=== PATIENT | male | born 1945 | race Caucasian/White ===

== ENCOUNTER → 2023-10-16 15:31 | Outpatient (REF) | payer MEDICARE, SELFPAY | LOC: PAVMRI 15:31 | PROVIDERS: ATTENDING PHYSICIAN Psychiatry & Neurology Neurology; FAMILY PHYSICIAN Internal Medicine | DX: M47.812 Spondylosis without myelopathy or radiculopathy, cervical region (principal) | CPT/HCPCS: 72141 ==

== ENCOUNTER → 2024-01-05 15:25 | Outpatient (REF) | payer MEDICARE, SELFPAY | LOC: PAVMRI 15:25 | PROVIDERS: ATTENDING PHYSICIAN Physician Assistant Surgical; FAMILY PHYSICIAN Internal Medicine | DX: I72.9 Aneurysm of unspecified site (principal); I67.1 Cerebral aneurysm, nonruptured | CPT/HCPCS: 70547 ==

== ENCOUNTER → 2024-09-28 10:44 | Outpatient (REF) | payer MEDICARE, OTHER, SELFPAY | LOC: RAD 10:44 | PROVIDERS: ATTENDING PHYSICIAN Registered Nurse | DX: M54.50 Low back pain, unspecified (principal) | CPT/HCPCS: 72110 ==

== ENCOUNTER 2025-05-01 13:01 | Inpatient (IN) | payer MEDICARE, OTHER, SELFPAY ==
[2025-05-01] VITALS (11 sets, daily range): BP systolic 102–140; BP diastolic 60–78; BMI 23.6
--- NOTE | 2025-05-01 10:08 | ED.GENMED ---
History of Present Illness
General
Chief Complaint: Numbness
Time Seen by Provider: 05/01/25 10:08
History of Present Illness
History of Present Illness:
FOCUSED PAST MEDICAL HISTORY
- GERD
REVIEW OF OLD RECORDS
- I reviewed records, the patient is getting physical therapy related to pain in the left knee
Note:
CHIEF COMPLAINT(S)
Left leg weakness beginning last night.
HISTORY OF PRESENT ILLNESS
The patient is a 79-year-old male who experienced sudden onset of weakness in the left leg around 11:00 PM the previous night. He noted the weakness when he attempted to stand after falling asleep in a recliner and fell immediately. He reports that
the weakness has persisted since its onset. There have been no issues with speech, confusion, or weakness in any other extremities such as arms. The patient denies any pain in the back or leg but mentions that the leg feels as if it is in a brace
and does not move properly. He describes an inability to keep the leg elevated and weak extension when attempting to lift the leg.
For the past few months, the patient notes experiencing occasional cramping, described as a 'Kris horse,' specifically on the left side, which improves with walking. However, these are not currently problematic. Sensation in the leg remains
intact as he felt a pinching sensation during examination.
The patients foot and ankle strength were noted to be good by the examining physician, raising concerns about why the weakness is isolated to the leg. There is no report of numbness or tingling nor does he experience pain radiating down the leg upon
physical maneuvers.
PAST MEDICAL AND SURGICAL HISTORY
The patient has had two hip replacements, three knee surgeries, and two shoulder operations.
PHYSICAL EXAM
General: Alert, no acute distress.
Skin: Warm, dry.
Head: Normocephalic, atraumatic.
Neck: Supple, trachea midline.
Eye Ears, nose, mouth and throat: Oral mucosa moist.
Cardiovascular: Normal peripheral perfusion, no edema.
Respiratory: Respirations are non-labored.
Gastrointestinal: Abdomen nondistended.
Back: Normal range of motion, normal alignment.
Musculoskeletal: Weakness noted in left leg extension, otherwise normal range of motion and strength for other tested areas.
Neurological: Alert and oriented to person, place, time, and situation, sensation intact. No focal neurological deficit in upper extremities. 3 out of 5 strength in the left lower extremity.
Psychiatric: Cooperative, appropriate mood & affect.
PLAN
The patient will undergo a computed tomography (CT) scan to further investigate the cause of the left leg weakness. A neurologist will be consulted regarding the isolated leg weakness, as it is not typical of a stroke presentation due to the absence
of arm involvement and preserved strength in the ankle and foot.
DIFFERENTIAL DIAGNOSIS
The differential diagnosis includes, in no particular order and is not limited to:
1. Stroke
2. Peripheral neuropathy
3. Spinal stenosis
4. Muscle strain or injury
5. Deep vein thrombosis
6. Sciatica
7. Multiple sclerosis
8. Infection such as cellulitis
9. Hip pathology
10. Vascular occlusion
RADIOLOGY
- CT head shows no acute abnormality, CTA head and neck and CTP unremarkable
EKG
- Sinus 76, normal axis, no acute ST abnormality, first-degree AV block, rate is increased compared to 07/31/2021 when it was 50
LABS
- Hemoglobin 12.7, otherwise labs unremarkable
UPDATE
-SUMMARY OF ENCOUNTER
The patient is a 79-year-old male who presented to the emergency department with sudden onset left leg weakness beginning the previous night. His presentation initiated a stroke alert. An urgent non-contrast CT scan of the brain was conducted, which
showed no intracranial hemorrhage or large vessel occlusion. As the CT perfusion was unremarkable, further imaging was conducted to rule out any significant vascular occlusions.
DISPOSITION
The patient will be admitted to the hospital for further management and observation given the acute presentation of left leg weakness and the need for further neurological evaluations.
MANAGEMENT OF THE PATIENTS CARE WAS DISCUSSED WITH
A neurologist was consulted regarding the isolated left leg weakness to further investigate possible stroke or other neurological conditions.
PLAN
The patient will undergo further neurological evaluation and continuous monitoring to observe any progression or improvement of the symptoms. Continued supportive care and additional imaging if needed while inpatient.
INDEPENDENT REVIEW OF LABS AND INTERPRETATION OF TESTS
My independent interpretation of the CT scan of the brain indicates no intracranial hemorrhage and no signs of large vessel occlusion. The CT perfusion is unremarkable.
MEDICAL DECISION MAKING
1. Number and Complexity of Problems Addressed:
Chronic conditions affecting care include previous hip and knee surgeries that could impact current musculoskeletal evaluations. Differential diagnosis includes stroke, peripheral neuropathy, spinal stenosis, muscle strain or injury, deep vein
thrombosis, sciatica, multiple sclerosis, cellulitis, hip pathology, and vascular occlusion.
2. Data:
Category 1
Independent review and interpretation of CT brain imaging were performed to confirm the absence of intracranial hemorrhage and occlusion.
Category 3
Discussion of management and test interpretation with a neurologist regarding differential diagnosis and appropriate management given the isolated weakness.
3. Risk:
Consideration of Admission/Observation: Escalation of care including admission/observation was considered given the complexity and risk of the patients presenting complaint, exam findings, and underlying comorbidities. Hospital admission was decided
to ensure comprehensive management and observation within an inpatient setting.
DIAGNOSIS
1. Left Leg Weakness, Suspected Acute Stroke - ICD-10-CM R29.89
Past History
Past History
ED Past Medical History: Hypercholesterolemia
ED Past Surgical History: Orthopedic
Social History
Tobacco: Non-smoker
Alcohol: None
Drug: None
Phy Exam
Physical Exam
Physical Exam:
See HPI
Course
Orders/Labs/Results
Orders:
Orders
05/01/25 10:21
CT BRAIN PERF STROKE ALERT Urgent
Comment:
Reason For Exam: acute LLE weak
CT HEAD STROKE ALERT W/o Cont Urgent
Comment:
Reason For Exam: acute LLE weak
CT HEAD/NECK ANG STROKE ALERT Urgent
Comment:
Reason For Exam: acute LLE weak
05/01/25 10:24
Electrocardiogram (*1) Urgent
Reason for Study: TIA/Stroke
05/01/25 10:25
EKG- Treatment ONCE
Complete Blood Count/With Diff Urgent
Comprehensive Metabolic Panel Urgent
Abnormal Lab Results
05/01/25
10:25
RBC 4.55 L 10^6/uL
(4.70-6.10)
Hgb 12.7 L g/dL
(13.0-18.0)
MCHC 32.1 L g/dL
(33.0-37.0)
MPV 10.5 H fL
(7.4-10.4)
Absolute Lymphs (auto) 0.8 L 10^3/uL
(1.2-3.4)
Absolute Monos (auto) 0.8 H 10^3/uL
(0.1-0.6)
Lymphocytes % 13.5 L %
(20.5-51.1)
Monocytes % 12.2 H %
(1.7-9.3)
05/01/25 10:25
05/01/25 10:25
Vital Signs
Initial and Last Documented VS:
Initial Vital Signs
Temp Pulse Resp BP Pulse Ox
36.9 C 82 16 119/60 96
05/01/25 10:02 05/01/25 10:02 05/01/25 10:02 05/01/25 10:02 05/01/25 10:02
Last Documented Vital Signs
Temp Pulse Resp BP Pulse Ox
36.9 C 74 10 121/63 96
05/01/25 10:02 05/01/25 10:17 05/01/25 10:17 05/01/25 10:17 05/01/25 10:09
*Pulse Oximetry
SaO2: 96
Oxygen Mode of Delivery: Room air
Patient hypoxic: no
*Critical Care Note
Total Time (30-74mins, 75-104mins- exclusive of procedures): Not Applicable
ED Attending Note
-
Portions of this chart may have been created with voice recognition software.� Occasional wrong word or��sound alike� substitutions may have occurred due to the inherent limitations of voice recognition software.
Discharge Plan
Departure
Patient Disposition: Admit
Date of Disposition: 05/01/25
Time of Disposition: 11:24
Presentation/result/management discussed w/ accepting MD/DO: Hospitalist
Discharge Problem:
Left leg weakness
Prescriptions:
No Action
atorvastatin 20 MG tablet
20 mg PO MOWEFR
Referrals:
Isis Rock [facility]CKL[facility] [Family Provider, Internal Medicine]
Interventions
Interventions:
*Risk Screen - Suicide Last Done: 05/01/25 10:02
*General Assessment Last Done: 05/01/25 10:53
*Neglect/Abuse Screening Last Done: 05/01/25 10:02
*ED- Fall Risk Assessment Last Done: 05/01/25 10:22
*ED COVID-19 Vaccine History Last Done: 05/01/25 10:22
*ED Influenza Vaccine History Last Done: 05/01/25 10:22
ED- Neurological Assessment Last Done: 05/01/25 10:23
Discharge Date and Time
Print Language: LUXEMBOURGISH
[2025-05-01 10:45] LABS: Hematocrit 39.6 % (39.0-52.0); Hemoglobin 12.7 g/dL (13.0-18.0); Mean Corp Hgb Conc. 32.1 g/dL (33.0-37.0); Mean Corpuscular Volume 87.0 fL (80.0-94.0); Nucleated Red Blood Cells % 0 % (-); Platelet Count 207 10^3/uL (130-400); Red Cell Dist. Width 13.6 % (11.5-14.5)
--- NOTE | 2025-05-01 10:50 | EDRN ---
Pt has good strength of foot/ ankle. Can flex knee Pt can flex hip . Pt has weakness trying to hold leg up off of bed... He can lift it of the stretcher but it drifts back down. He has good color and temp to both feet with strong pulses. Pt reports
that over the last few nights has noted ' charley horse' discomfort affecting lt posterior thigh,. He says it feels like he has a brace on his thigh.
[2025-05-01 10:59] LABS: ALT (SGPT) 21 U/L (0-50); AST (SGOT) 26 U/L (17-59); Albumin 4.1 g/dl (3.5-5.0); Alkaline Phosphatase 76 U/L (38-126); Blood Urea Nitrogen 14 mg/dl (9-20); Calcium 9.0 mg/dl (8.4-10.2); Carbon Dioxide 27 mmol/L (22-30); Chloride 104 mmol/L (98-107); Glucose 94 mg/dl (70-99); Potassium 4.1 mmol/L (3.5-5.1); Sodium 138 mmol/L (135-145); Total Protein 6.9 g/dl (6.3-8.2); eGFR > 60.00
--- NOTE | 2025-05-01 11:49 | HPS.HSE ---
Family Physician
-
Family Physician: Is[facility] Rock
Chief Complaint
-
Acute onset left leg weakness
History of Present Illness
79-year-old [id number] male with past medical history of hyperlipidemia presenting to the ER reporting acute onset left lower extremity weakness, numbness, decreased sensation. Patient was sleeping in a recliner yesterday night after
dinner for around 2 hours, he tried to get up from his recliner and fell onto his left side, stating that his left leg gave away. Denies any head strike. Reports that his left leg felt heavy and since then he was not able to walk properly.
Patient denies speech defect, confusion, blurry vision, bladder/bowel incontinence, fever/chills, recent trauma. No other neurological deficits mentioned except as above. Patient does not have history of migraines/seizures.
ED course�stroke alert was called at presentation, CT head, CT perfusion, CTA head/neck was negative. He was evaluated by neurology. Vital stable, labs unremarkable except for hemoglobin�12.7.
Medical History
Past Medical History
Past Medical History: Reports Hypercholesterolemia
Past Surgical History: Reports Other (Bilateral hip replacements, 2 shoulder surgeries, 3 knee surgeries.)
Social History
Tobacco: Former Smoker
Alcohol: Occasional
Drug: None
Personal:
Living: With Family
Employment: Retired
Family History
Family History: Not pertinent
Allergies / Home Medications
Allergies reflects when Allergies were last updated in [employer].
Home Medications with original date entered in [employer]
Allergy/Medication List:
Allergies
Allergy/AdvReac Type Severity Reaction Status Date / Time
No Known Allergies Allergy Verified 05/01/25 10:48
Home Medications
atorvastatin 20 mg tablet 20 mg PO MOWEFR 08/10/21
Review of Systems
-
A 12 point ROS was completed and negative except as noted: Yes
Physical Exam
Vital Signs
Vital Signs
Temp Pulse Resp BP Pulse Ox
98.4 F 74 10 121/63 96
05/01/25 10:02 05/01/25 10:17 05/01/25 10:17 05/01/25 10:17 05/01/25 10:09
Physical Exam
General: Well Developed, Well Nourished and No Apparent Distress
HEENT: NormoCephalic, Atraumatic and PERRLA
Respiratory: Clear
Cardiac: S1/S2 and Regular Rhythm
GI: Soft, Non Tender, Non Distended and Normal Bowel Sounds
Skin: Warm and Dry
Neuro: Awake, Alert, Oriented, AO x 3, Cranial Nerves Intact and Other (No pronator drift, right lower extremity sensations, strength, DTRs intact. Left lower extremity-strength 3/5, decreased sensation, DTRs intact.); No Slurred Speech or Facial
Droop
Psych: Calm
Laboratory Results
-
05/01/25 10:25
05/01/25 10:25
Laboratory Results
Total Bilirubin 0.8 mg/dl (0.2-1.3) 05/01/25 10:25
AST 26 U/L (17-59) 05/01/25 10:25
ALT 21 U/L (0-50) 05/01/25 10:25
Alkaline Phosphatase 76 U/L (38-126) 05/01/25 10:25
Impression/Plan
-
IMPRESSION:
79-year-old male with hyperlipidemia presenting to the ER with acute onset left lower extremity weakness. Stroke alert was called, neurology evaluated, CT head, CTP, CTA head/neck negative for acute abnormalities, no vascular stenosis.
PLAN:
#Acute onset left lower extremity weakness
Etiology likely due to lumbar spine pathology (lumbar spine stenosis versus degenerative disc disease), less likely stroke.
No aphasia, facial droop, pronator drift noticed/reported.
EKG with NSR, first-degree AV block (not new)
CT head imaging, CTA negative for stroke
Will order MRI brain
Will order MRI lumbar spine
EMG/NCS for further evaluation if needed, pending MRI lumbar spine.
Neurology on board, appreciate recommendations
Check CPK
PT/OT consult
Monitor clinically for any worsening
#Hyperlipidemia
Continue statins
Check CPK
DVT prophylaxis�Lovenox
Diet�low-cholesterol
Full code
--- NOTE | 2025-05-01 13:07 | W.PN.UPDATE ---
Update Note
Progress Note Update
I saw and evaluated the patient with the resident.
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 Denies to back pain, or sensory loss.
Denies to other neurologic deficit. Stroke alert was called on admission.
A/P:
# Acute onset left lower extremity weakness, unclear etiology currently
Admission CT head and CT Angio unrevealing
Check MRI brain
Check MRI Lumbar spine
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
Neurology CS
PT/OT consult
# Hyperlipidemia
Continue statin for now
can check lipid
DVT prophylaxis�Lovenox
Full code
[2025-05-01] MEDS: NSS 250 IV (14:16)
--- NOTE | 2025-05-01 16:43 | EDCM ---
CM reviewed chart and met with pt and bedside in ED. Pt lives with in 2 story home, no DIANA. Has first floor half bath, full flight to second floor bedroom and full bath.
Independent in ADLs, personal care and ambulation at baseline. Does not use assistive devices but has cane, crutches, wheelchair and commode in home from other family members.
Confirms prescription coverage, states they also use [facility]
Hx VN unsure of agency, no hx SNF
PCP: Is[facility] Rock
Pharmacy: [facility] [address]
CM will continue to follow for all discharge planning needs.
--- NOTE | 2025-05-01 17:30 | CON.NEURO4 ---
Consultation - Neurology 4
-
CONSULTING PHYSICIAN: Dr. Erik Chacko
REFERRING PHYSICIAN: Dr. Dale Manzo
DICTATED BY: Dr. Erik Chacko
DATE/TIME OF REQUEST: 05/01/2025
DATE/TIME OF CONSULTATION: 05/01/2025
Reason for Consultation: Left leg weakness
ASSESSMENT AND PLAN:
The patient is a 79 years old male who experienced sudden onset of weakness of left leg at around 11 PM last night. The patient noted the weakness when he attempted to stand up after falling asleep in a recliner, and he fell immediately after
attempting to stand up. The patient's weakness has persisted since his onset. The last known normal is at 11 PM last night. He denies any difficulty with speech or weakness in any other extremity and he also denies any facial droop. The patient
denies any numbness of the left leg. The patient says that he has a chronic back problem for which he visits chiropractor regularly and the last time he visited the chiropractor was 2 days ago.
It appears unlikely that the patient had an acute acute stroke and the etiology appears to be secondary to lumbar spine pathology. CT of the head does not show an acute intracranial abnormality. CTA of the head and neck did not show a large vessel
occlusion. The plan is to get MRI of the lumbar spine. The patient says that he has a chronic back problem for which he visits chiropractor regularly and the last time he visited the chiropractor was 2 days ago. The neurologic examination is
normal except of mild weakness in the left lower extremity.
History of Present Illness:
The patient is a 79 years old male who experienced sudden onset of weakness of left leg at around 11 PM last night. The patient noted the weakness when he attempted to stand up after falling asleep in a recliner, and he fell immediately after
attempting to stand up. The patient's weakness has persisted since his onset. The last known normal is at 11 PM last night. He denies any difficulty with speech or weakness in any other extremity and he also denies any facial droop. The patient
denies any numbness of the left leg. The patient says that he has a chronic problem for which he visits chiropractor regularly and the last time he visited the chiropractor was 2 days ago.
Past Medical History:
The patient has had two hip replacements, three knee surgeries, and two shoulder operations.
Review of Systems:
The patient denies history of headache, dizziness, chest pain, shortness of breath, fever, chills, nausea and vomiting.
Neurologic Examination:
The patient is alert and oriented x 3,
Speech is clear,
The cranial nerves II to XII are grossly intact,
The motor strength is grossly 5/5 bilaterally in the upper extremities and in the right lower extremity however the strength in the left lower extremity is about 4/5,
The sensations are grossly intact,
The cerebellar examination does not show limb ataxia.
Vital Signs and Labs
-
Vital Signs and Labs:
Vital Signs
Temp Pulse Resp BP Pulse Ox
36.9 C 69 12 135/68 96
05/01/25 10:02 05/01/25 16:45 05/01/25 16:45 05/01/25 16:00 05/01/25 10:09
Lab Results
05/01/25 10:25
05/01/25 10:25
Sodium 138 mmol/L (135-145) 05/01/25 10:25
Potassium 4.1 mmol/L (3.5-5.1) 05/01/25 10:25
BUN 14 mg/dl (9-20) 05/01/25 10:25
Glucose 94 mg/dl (70-99) 05/01/25 10:25
Calcium 9.0 mg/dl (8.4-10.2) 05/01/25 10:25
Medications
-
Home Medications
�Medication �Instructions �Recorded
atorvastatin 20 mg tablet 20 mg PO MOWEFR 08/10/21
[2025-05-01] MEDS: LOVENOX 40 MG SC (20:20)
--- NOTE | 2025-05-01 22:22 | PTCARENOTE ---
Patient developed a fever of 100.5. Patient received Tylenol for fever. Septic workup was completed. Patient came back positive for COVID.
--- NOTE | 2025-05-01 22:22 | W.PN.UPDATE ---
Update Note
Progress Note Update
-New onset of fever with temp 100.5.
chest x-ray, cbc, bmp, lactic, flu, covid, blood cultures, urinalysis.
-Positive covid test. Patient denies cough or SOB. Currently on RA.
-Vitamin C, D, zinc, and mag added
-Tylenol PRN for fever.
-Neg flu. Normal lactic acid level and white blood cells and urinalysis unremarkable.
-Chest x-ray with no evidence for PNA or other acute cardiopulmonary disease.
-Blood cultures still pending.
[2025-05-01] MEDS: TYLENOL 650 MG PO (22:49)
[2025-05-01 22:52] LABS: Hematocrit 41.5 % (39.0-52.0); Hemoglobin 13.1 g/dL (13.0-18.0); Mean Corp Hgb Conc. 31.6 g/dL (33.0-37.0); Mean Corpuscular Volume 89.8 fL (80.0-94.0); Platelet Count 186 10^3/uL (130-400); Red Cell Dist. Width 13.8 % (11.5-14.5)
[2025-05-01 23:10] LABS: COVID-19 Antigen Positive (Negative)
[2025-05-01 23:14] LABS: Blood Urea Nitrogen 12 mg/dl (9-20); Calcium 8.8 mg/dl (8.4-10.2); Carbon Dioxide 27 mmol/L (22-30); Chloride 103 mmol/L (98-107); Estimated Creatinine Clearance 69 ml/min; Glucose 88 mg/dl (70-99); Potassium 3.9 mmol/L (3.5-5.1); Sodium 138 mmol/L (135-145); eGFR > 60.00
[2025-05-01 23:15] LABS: Urine Character Clear (Clear)
[2025-05-01 23:22] LABS: Urine Red Blood Cell 0-2 /HPF (0-2); Urine White Cell 0-2 /HPF (0-5)
[2025-05-02] MEDS: VITAMIN C 1000 MG PO ×3 (00:05→20:35)
[2025-05-02 07:09] LABS: Hematocrit 43.4 % (39.0-52.0); Hemoglobin 13.6 g/dL (13.0-18.0); Mean Corp Hgb Conc. 31.3 g/dL (33.0-37.0); Mean Corpuscular Volume 88.2 fL (80.0-94.0); Nucleated Red Blood Cells % 0 % (-); Platelet Count 188 10^3/uL (130-400); Red Cell Dist. Width 13.8 % (11.5-14.5)
[2025-05-02 07:30] VITALS: BP 134/74
[2025-05-02 07:38] LABS: ALT (SGPT) 22 U/L (0-50); AST (SGOT) 29 U/L (17-59); Albumin 4.1 g/dl (3.5-5.0); Alkaline Phosphatase 75 U/L (38-126); Blood Urea Nitrogen 11 mg/dl (9-20); Calcium 8.9 mg/dl (8.4-10.2); Carbon Dioxide 29 mmol/L (22-30); Chloride 103 mmol/L (98-107); Estimated Creatinine Clearance 69 ml/min; Glucose 88 mg/dl (70-99); HDL Cholesterol 49 mg/dl; LDL Cholesterol, Calculated 88 mg/dl; Sodium 139 mmol/L (135-145); Total Protein 6.9 g/dl (6.3-8.2); Very Low Density Lipoprotein 19 mg/dl (0-30); eGFR > 60.00
[2025-05-02 07:44] LABS: Potassium 4.1 mmol/L (3.5-5.1)
[2025-05-02] MEDS: MAGNESIUM OXIDE 400 MG PO (08:30)
[2025-05-02] MEDS: ZINC 50 MG PO (08:31)
[2025-05-02] MEDS: VITAMIN D3 (cholecalciferol) 50 MCG PO (08:31)
[2025-05-02] MEDS: LIPITOR 20 MG PO (11:25)
[2025-05-02 11:56] VITALS: BP 131/83; PULSE 78; O2SAT 97
[2025-05-02 12:39] VITALS: BP 138/63; O2SAT 96
--- NOTE | 2025-05-02 14:46 | W.PN.NEURO.1 ---
Today's Communication / Plan
-
Will provide prednisone 60 mg with rapid taper although the patient has been recently diagnosed with COVID in hopes of improving leg function
Consideration for EMG as outpatient may be of benefit, there is no clear evidence at this time of a rapidly progressive process
Neuro Assessment/Plan
Assessment
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 Differential diagnosis includes subacute worsening of his underlying peripheral neuropathy
especially in light of MRI of his lumbar spine not demonstrating a significant critical stenosis of lumbar roots. MRI of brain was also unremarkable for an acute change producing symptoms.
Plan
Continue rehabilitation
Will provide prednisone 60 mg with rapid taper although the patient has been recently diagnosed with COVID in hopes of improving leg function
Consideration for EMG as outpatient may be of benefit, there is no clear evidence at this time of a rapidly progressive process
Will follow as outpatient, or patient may follow with his usual outpatient neurologist
Subjective/Objective
Subjective Data
Date of Service: May 02, 2025
Patient reports mild improvement of the left leg function. No known modifying factors
Objective Data
Vital Signs
Temp Pulse Resp BP Pulse Ox
36.3 C 80 22 134/74 97
05/02/25 07:30 05/02/25 07:30 05/02/25 07:30 05/02/25 07:30 05/02/25 08:35
Lab Results
05/02/25 06:48
05/02/25 06:48
Sodium 139 mmol/L (135-145) 05/02/25 06:48
Potassium 4.1 mmol/L (3.5-5.1) 05/02/25 06:48
BUN 11 mg/dl (9-20) 05/02/25 06:48
Glucose 88 mg/dl (70-99) 05/02/25 06:48
Calcium 8.9 mg/dl (8.4-10.2) 05/02/25 06:48
LDL Cholesterol, Calc 88 mg/dl 05/02/25 06:48
Patient Allergies
No Known Allergies Allergy (Verified 05/01/25 10:48)
Review of Systems
-
History Source: Patient
All other systems: Reviewed and negative
Respiratory: Negative Trouble Breathing
Cardiac: Negative Chest Pain
Abdomen/GI: Negative Incontinence of Stool
Genitourinary: Negative Incontinence
Physical Exam
-
General: No Apparent Distress and Appears Stated Age
Eyes: Round OU, [place] Conjunctivae and No Ptosis
HEENT: Anicteric and Moist Mucous Membranes
Neck: Full Range of Motion
Respiratory: No Dyspnea
Cardiac: No JVD
GI: Non-distended
Skin: Unremarkable
Extremities: No Clubbing, No Cyanosis and No Edema
Psych: Intact Judgement/Insight
Extended Neurological Exam
Mood & Affect: Mood Unremarkable and Affect Unremarkable
Attention Span & Concentration: Awake, Alert, Interactive and No Difficulty with 2 Step Request
Memory: Unremarkable
Tremor: Hand Tremor Absent and Head Tremor Absent
Speech: Quality Unremarkable and Quantity Unremarkable
Cranial Nerve II: Left Eye: Pupillary Size Unremarkable and Visual Le Grossly Intact
Cranial Nerve II: Right Eye: Pupillary Size Unremarkable and Visual Le Grossly Intact
Cranial Nerves III, IV, : Extraocular Movement: Grossly Intact
Cranial Nerve VII: Facial Symmetry: Normal Facial Symmetry
Cranial Nerve VIII: Hearing: Unremarkable Hearing to Normal Conversational Volume
Cranial Nerve XI: Shoulder Shrug: Unremarkable
Muscle Strength, Overall: Reduced (3-5 left foot dorsiflexion as well as proximal strength reduction to 4 out of 5 in left lower extremity; otherwise intact) and Full in Upper Extremities
Muscle Bulk & Tone: Bulk Unremarkable and Tone Unremarkable
Pronator Drift: No Drift in Upper Extremities and Drift in Left Lower Extremity; Negative Drift in Right Lower Extremity
Deep Tendon Reflexes: Trace Throughout
Touch Sensation: Pin Prick Reduced (Distally in bilateral lower extremities)
Coordination: [id number] Testing Unremarkable
Data Reviewed
-
MRI Head: Report Reviewed
MRI Lumbar Spine: Report Reviewed
Labs: Report Reviewed
Reviewed with: Physician, Nurse Practioner and Patient
Old Records: Summarized
Past History
Past History
ED Past Medical History: Hypercholesterolemia, Hypothyroidism and Other (cervical dystonia, BPH)
ED Past Surgical History: Orthopedic
Social History
Tobacco: Non-smoker
Alcohol: None
Drug: None
Medications
-
Medications:
Generic Name Dose Route Start Last Admin
Trade Name Freq PRN Reason Stop Dose Admin
Acetaminophen 650 mg 05/01/25 22:22 05/01/25 22:49
Acetaminophen 325 Mg Tablet PO 05/29/25 22:21 650 mg
Q6HPRN PRN Administration
mild pain/ fever>100.5F
Ascorbic Acid 1,000 mg 05/01/25 23:45 05/02/25 08:30
Ascorbic Acid 500 Mg Tablet PO 05/29/25 23:44 1,000 mg
BID PEYMAN Administration
Atorvastatin Calcium 20 mg 05/02/25 12:24 05/02/25 11:25
Atorvastatin (Lipitor) 20 Mg Tablet PO 05/30/25 12:23 20 mg
MOWEFR PEYMAN Administration
Cholecalciferol 50 mcg 05/02/25 08:00 05/02/25 08:31
Cholecalciferol (Vitamin D3) 50 Mcg Tablet (2,000 Units) PO 05/30/25 07:59 50 mcg
DAILY PEYMAN Administration
Enoxaparin Sodium 40 mg 05/01/25 18:00 05/01/25 20:20
Enoxaparin Sodium 40 Mg/0.4 Ml Syringe SC 05/29/25 17:59 40 mg
QPM PEYMAN Administration
Magnesium Oxide 400 mg 05/02/25 08:00 05/02/25 08:30
Magnesium Oxide 400 Mg Tablet PO 05/30/25 07:59 400 mg
DAILY PEYMAN Administration
Zinc 50 mg 05/02/25 08:00 05/02/25 08:31
Zinc 50 Mg (Zinc Sulfate 220 Mg) Capsule PO 05/30/25 07:59 50 mg
DAILY PEYMAN Administration
[2025-05-02 15:30] VITALS: BP 118/75
--- NOTE | 2025-05-02 16:08 | W.PN.HOSP.TC ---
Today's Communication/Plan
-
MRI brain, lumbar spine. Supportive care for COVID.
Assessment / Plan
Assessment / Plan
79M with HLD P/W acute onset left lower extremity weakness.
LLE weakness
CTH unremarkable
MRI brain does not reveal any stroke
MRI lumbar spine shows degenerative changes
CK 118
Neurology consulted, foot drop and peripheral neuropathy are likely contributors
PT/OT
COVID infection
Fever overnight 05/01, poor appetite and cold symptoms since 1 week
No pneumonia on CXR. 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
Treat conservatively
HLD
Statin
DVT PPx
Lovenox
Full code
Anticipated Discharge: Within 24 hours
Subjective/Interval History
-
Date of Service: May 02, 2025
Patient feeling okay, no change in his weakness. Notes fever overnight, has been feeling poorly for about a week, including loss of appetite, cold symptoms.
Objective Data
-
Labs:
Laboratory Results
05/02/25
06:48
WBC 4.7 L
Hgb 13.6
Hct 43.4
Plt Count 188
Sodium 139
Potassium 4.1
Chloride 103
Carbon Dioxide 29
BUN 11
Creatinine 0.9
Glucose 88
Calcium 8.9
Total Bilirubin 0.7
AST 29
ALT 22
Alkaline Phosphatase 75
Vital Signs:
Vital Signs
Temp Pulse Resp BP Pulse Ox
97.4 F 80 22 134/74 97
05/02/25 07:30 05/02/25 07:30 05/02/25 07:30 05/02/25 07:30 05/02/25 08:35
Review of Systems
-
All other systems: Reviewed and negative
Physical Exam
-
General: No Apparent Distress
HEENT: Moist Mucous Membranes, Anicteric and PERRLA
Respiratory: Clear to Auscultation; Negative Wheezes, Rales or Rhonchi
Cardiac: Regular Rhythm and S1/S2; Negative Murmur, Rub or Gallop
GI: Soft, Nontender, Nondistended and Normal Bowel Sounds
Musculoskeletal: No Edema
Skin: Warm and Dry; Negative Rash, Ulcers or Lesions
Neuro: Awake, AO x 3, Central Nerve's Intact and Other (RUE, LUE, RLE, 5 out of 5 strength, LLE 3-4 out of 5 strength.)
Hematologic / Lymphatic: No Lymphadenopathy
Psych: Calm
Data Reviewed
-
MRI: Report Reviewed by me, Discussed with Physician and Discussed with Patient
Labs: Labs Reviewed by me and Discussed with Patient
[2025-05-02] MEDS: LOVENOX 40 MG SC (17:13)
[2025-05-02] MEDS: DELTASONE 60 MG PO (17:22)
--- NOTE | 2025-05-02 20:44 | PTCARENOTE ---
Pt transferred to 426 via W/C by this nurse. Belongings with pt. Pt AAOx3 Ataxia on L leg. No c/o pain. Pt oriented to room. Safety measures in place, call pimentel within reach.
[2025-05-02 23:37] VITALS: BP 122/74
[2025-05-03 07:00] VITALS: BP 138/78
[2025-05-03] MEDS: DELTASONE 50 MG PO (08:54)
[2025-05-03] MEDS: ZINC 50 MG PO (08:55)
[2025-05-03] MEDS: VITAMIN C 1000 MG PO ×2 (08:55→19:25)
[2025-05-03] MEDS: MAGNESIUM OXIDE 400 MG PO (08:56)
[2025-05-03] MEDS: VITAMIN D3 (cholecalciferol) 50 MCG PO (08:56)
--- NOTE | 2025-05-03 10:42 | CM ---
Chart reviewed. Covid (+)
Therapy has possible rehab determination. Discussed w/ patient who reports that he feels fine but is still having weakness. Patient stated he drives and his does not due to her neuropathy. Patient stated he needs to be able to get in and out of
the car. CM discussed SNF w/ patient, patient prefers to go home w/ PT even if he still has weakness at discharge.
Plan: Home w/ home PT
--- NOTE | 2025-05-03 13:45 | W.PN.HOSP.TC ---
Today's Communication/Plan
-
Awaiting final PT/OT recs. Possible discharge tomorrow. Outpatient EMG
Assessment / Plan
Assessment / Plan
79M with HLD P/W acute onset left lower extremity weakness.
LLE weakness
CTH unremarkable
MRI brain does not reveal any stroke
MRI lumbar spine shows known degenerative changes
CK 118
Neurology consulted, foot drop and peripheral neuropathy are likely contributors
Neurology recommends outpatient EMG
PT/OT final recs are pending
COVID infection
Fever overnight 05/01, poor appetite and cold symptoms since 1 week
No pneumonia on CXR. 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
Treat conservatively. No further symptoms
HLD
Statin
DVT PPx
Lovenox
Full code
Anticipated Discharge: Within 24 hours
Subjective/Interval History
-
Date of Service: May 03, 2025
Patient notes improvement in his left leg strength from yesterday to today. He has no further COVID symptoms.
Objective Data
-
Labs:
Laboratory Results
05/02/25
06:48
WBC 4.7 L
Hgb 13.6
Hct 43.4
Plt Count 188
Sodium 139
Potassium 4.1
Chloride 103
Carbon Dioxide 29
BUN 11
Creatinine 0.9
Glucose 88
Calcium 8.9
Total Bilirubin 0.7
AST 29
ALT 22
Alkaline Phosphatase 75
Vital Signs:
Vital Signs
Temp Pulse Resp BP Pulse Ox
98.2 F 66 18 138/78 98
05/03/25 07:00 05/03/25 07:00 05/03/25 07:00 05/03/25 07:00 05/03/25 07:00
I&O
05/02/25 05/03/25 05/04/25
06:59 06:59 06:59
Intake Total 1200 / 1200
Output Total 900 / 900
Balance 300 / 300
Review of Systems
-
All other systems: Reviewed and negative
Physical Exam
-
General: No Apparent Distress
HEENT: Moist Mucous Membranes, Anicteric and PERRLA
Respiratory: Clear to Auscultation; Negative Wheezes, Rales or Rhonchi
Cardiac: Regular Rhythm and S1/S2; Negative Murmur, Rub or Gallop
GI: Soft, Nontender, Nondistended and Normal Bowel Sounds
Musculoskeletal: No Edema
Skin: Warm and Dry; Negative Rash, Ulcers or Lesions
Neuro: Awake, AO x 3, Central Nerve's Intact and Other (RUE, LUE, RLE, 5 out of 5 strength, LLE 4-5 out of 5 strength.)
Hematologic / Lymphatic: No Lymphadenopathy
Psych: Calm
Data Reviewed
-
MRI: Report Reviewed by me, Discussed with Physician and Discussed with Patient
Labs: Labs Reviewed by me and Discussed with Patient
[2025-05-03 15:02] VITALS: BP 119/71
[2025-05-03] MEDS: LOVENOX 40 MG SC (16:12)
[2025-05-03 23:00] VITALS: BP 107/70
[2025-05-04 08:00] VITALS: BP 128/68
[2025-05-04] MEDS: DELTASONE 40 MG PO (08:37)
[2025-05-04] MEDS: ZINC 50 MG PO (08:40)
[2025-05-04] MEDS: LIPITOR 20 MG PO (08:40)
[2025-05-04] MEDS: VITAMIN D3 (cholecalciferol) 50 MCG PO (08:40)
[2025-05-04] MEDS: VITAMIN C 1000 MG PO (08:41)
[2025-05-04] MEDS: MAGNESIUM OXIDE 400 MG PO (08:41)
[2025-05-04 09:27] VITALS: BP 128/68
--- NOTE | 2025-05-04 11:14 | W.DCSUMMARY ---
Discharge Summary
Discharge Data
Date of Admission: 05/01/25
Date of Discharge: 05/04/25
Total time spent discharging patient (in min): 40
-
Pending Results: No
Hospital Course
Attending physician on day of discharge:
Gisell Trejo MD
Admission/discharge diagnosis:
LLE weakness
Secondary diagnoses:
DDD
COVID
HLD
Consultations:
Neurology Dr. Cordero
Procedures:
None
Hospital course:
79M with neuropathy, HLD P/W acute onset left lower extremity weakness. Admission CT head and CT Angio were unrevealing. MRI brain does not reveal any stroke, MRI lumbar spine shows known degenerative changes but no critical stenosis. Neurology
consulted, this could possibly be worsening of his underlying peripheral neuropathy and foot drop. He was started on rapid prednisone taper. Neurology recommended outpatient EMG. The patient experienced some improvement in his weakness, he was
evaluated by PT who recommended home health PT. He also developed a fever, and workup was positive for COVID. He reported he had cold-like symptoms about a week before admission. This was treated conservatively.
Diagnostic Findings:
MRI brain: IMPRESSION: No evidence of acute intracranial abnormality.
Paranasal sinus disease as described. Suggestion of meniscal air-fluid level within the right maxillary sinus, and please correlate with any clinical signs or symptoms of acute right maxillary sinusitis.
MRI lumbar spine:IMPRESSION: Normal appearance of the lower spinal cord and conus medullaris. There is no evidence for abnormal enhancement of the spinal cord, conus, or nerve roots within the spinal canal.
No evidence for discitis or osteomyelitis. Marrow signal intensity is within normal limits.
Degenerative changes of the lumbar spine, described in detail above. Please see above narrative.
Physical exam on discharge:
Gen: NAD
HEENT: PERRLA, EOMI, MMM, neck supple
Cards: RRR, no M/G/R
Resp: Lungs CTAB, no W/R/R
GI: soft, NT/ND/NABS
MSK: No edema
Skin: warm and dry, no rash, ulcer or lesions
Heme: No LAD
Psych: Calm
Neuro: AAOx3
Discharge disposition:
Home with C
Discharge Plan
-
Patient Disposition: Home with Home Care
Discharge Diagnosis/Procedures: left leg weakness
Diet: Regular
Activity: As tolerated
Driving Restrictions: Not until seen by your Dr
Others Tests: EMG as outpatient
Instructions: Electromyography, COVID-19 in adults (DC), Lowering the risk of spreading infection
Referrals:
Jl Cordero MD [Active, Neurology] - in one to two weeks
Isis Rock NP [Family Provider, Internal Medicine]
Additional Discharge Medication Instructions: Complete prednisone taper. follow up with Dr. Cordero for EMG. Continue with physical therapy. Since your COVID started over a week and a half ago, you do not need repeat testing, just wear a mask around
other people for the next 3 days.
Prescriptions:
New
prednisone 10 mg Tablet
See Rx Instructions .ROUTE .COMPLEX Qty: 6 0RF
Rx Instructions:
Take By Mouth:
30 mg daily x1 days, 20 mg daily x1 days, 10 mg daily x1 days.
Continued
atorvastatin 20 MG tablet
20 mg PO MOWEFR
Discharge Orders:
Discharge Patient (As Directed); Ordered 05/04/25
Ordered By: Gisell Trejo
Discharge Date and Time
Print Language: SLOVENIAN
--- NOTE | 2025-05-04 12:23 | VNURNOTE ---
Home Health Liaison spoke with patient to discuss [facility] nurse/therapy, visits, schedule and homebound status. Patient is agreeable and understands that visits at home will be 2-3 x per week to assess and teach medical management. Patient is aware
that [facility] will contact them for start of care within a few days after discharge from .
[facility] referral completed in [facility].
--- NOTE | 2025-05-04 12:23 | CM ---
CM reviewed chart, patient seen in chair.
For d.c today- spouse to transport home.
IMM verbally reviewed, provided with copy, placed in chart.
Patient provided with RW by PT, agreeable to [facility], TT to liaison Nara Cochran.
CM will continue to follow for all d/c needs.
Plan; home with [facility]
== END 2025-05-04 14:47 | disposition home health service (06) | DRG 564 ==
LOC: 4 WEST ACU 13:01
PROVIDERS: Nurse Practitioner Family; Student in an Organized Health Care Education/Training Program; ADMITTING PHYSICIAN Internal Medicine; ATTENDING PHYSICIAN Internal Medicine; CONSULT PHYSICIAN Psychiatry & Neurology Neurology; EMERGENCY PHYSICIAN Emergency Medicine; FAMILY PHYSICIAN Internal Medicine
DX: M21.379 Foot drop, unspecified foot (principal); U07.1 COVID-19; G62.9 Polyneuropathy, unspecified; Z87.891 Personal history of nicotine dependence; E78.00 Pure hypercholesterolemia, unspecified
CPT/HCPCS: 0042T; 70450; 70496; 70498; 70553; 71045; 72158; 80048; 80053; 80061; 81003; 81015; 82550; 83605; 85025; 85027; 87040; 87502; 87811; 93005; 97163; 97166; 97530; 99285; A9575; Q9967

== ENCOUNTER → 2025-06-09 10:38 | Outpatient (REF) | payer MEDICARE, OTHER, SELFPAY | LOC: EMG 10:38 | PROVIDERS: ATTENDING PHYSICIAN Nurse Practitioner Adult Health; FAMILY PHYSICIAN Internal Medicine | DX: R29.898 Other symptoms and signs involving the musculoskeletal system (principal); R20.0 Anesthesia of skin | CPT/HCPCS: 95886; 95911 ==